=== PATIENT | male | born 1980 | race Caucasian/White ===

== ENCOUNTER 2018-03-17 01:36 | Emergency (ER) | payer OTHER ==
[~2018-03-17] VITALS: Ht 170.1 cm; Wt 77.1 kg
[~2018-03-17 01:36] MED LIST: HYDROCODONE BIT1 T11 PO; MOTRIN800 MG PO; NAPROSYN500 MG PO
[2018-03-17 02:21] LABS: BASO % 0.2 % (0.0-1.0); EOS # 0.1 10*3/uL (0.0-0.4); EOS % 1.1 % (1.0-4.0); HEMATOCRIT 36.6 % (42.0-52.0); HEMOGLOBIN 12.3 g/dl (14.0-18.0); LYMPH # 1.6 10*3/uL (1.3-4.4); LYMPH % 24.8 % (27.0-41.0); MEAN CELL VOLUME 105.2 fl (80.0-94.0); MEAN CORPUSCULAR HGB 35.3 pg (27.0-31.0); MEAN CORPUSCULAR HGB CONC 33.6 g/dl (33.0-37.0); MEAN PLATELET VOLUME 10.2 fl (9.6-12.3); MONO # 0.8 10*3/uL (0.1-1.0); MONO % 11.6 % (3.0-9.0); NEUT % 61.7 % (47.0-73.0); PLATELET COUNT AUTOMATED 98 10*3/uL (130-400); RED BLOOD COUNT 3.48 10*6/uL (4.50-5.90); WHITE BLOOD COUNT 6.5 10*3/uL (4.8-10.8)
[2018-03-17 02:37] LABS: ALBUMIN 2.4 gm/dl (3.1-4.5); ALKALINE PHOSPHATASE 168 U/L (45-117); BUN 5 mg/dl (7-24); CHLORIDE 104 mmol/L (98-107); POTASSIUM 3.1 mmol/L (3.5-5.1); SGOT/AST 222 IU/L (3-35); SGPT/ALT 83 U/L (12-78); SODIUM 141 mmol/L (136-145); TOTAL PROTEIN 6.9 gm/dL (6.4-8.2)
[2018-03-17] MEDS ORDERED: Motrin,Rufen800 MG PO (02:42)
[2018-03-17] MEDS ORDERED: ZITHROMAX250 MG PO (02:42)
[2018-03-17] MEDS ORDERED: K-TAB20 MEQ PO (02:49)
== END 2018-03-17 03:17 | disposition home or self-care (01) ==
LOC: ED 01:36
PROVIDERS: Emergency Medicine Emergency Medical Services
DX: J20.9 Acute bronchitis, unspecified (principal); E87.6 Hypokalemia; R74.8 Abnormal levels of other serum enzymes

== ENCOUNTER 2018-04-05 14:45 | Emergency (ER) | payer OTHER ==
[~2018-04-05] VITALS: Ht 167.6 cm; Wt 74.8 kg
[~2018-04-05 14:45] MED LIST changes: +K-TAB20 MEQ PO; +Motrin,Rufen800 MG PO; +ZITHROMAX250 MG PO
[2018-04-05] MEDS ORDERED: NORCO 5-325 TA1 EACH PO (16:25)
[2018-04-05] MEDS ORDERED: Motrin,Rufen800 MG PO (16:25)
== END 2018-04-05 16:33 | disposition home or self-care (01) ==
LOC: ED 14:45
DX: S82.891A Other fracture of right lower leg, initial encounter for closed fracture (principal); Z79.899 Other long term (current) drug therapy; W10.8XXA Fall (on) (from) other stairs and steps, initial encounter; Y93.89 Activity, other specified; Y92.89 Other specified places as the place of occurrence of the external cause; Y99.9 Unspecified external cause status

== ENCOUNTER 2018-04-24 21:56 | Emergency (ER) | payer OTHER ==
[~2018-04-24] VITALS: Ht 167.6 cm; Wt 72.6 kg
[~2018-04-24 21:56] MED LIST changes: +NORCO 5-325 TA1 EACH PO
== END 2018-04-24 23:30 | disposition home or self-care (01) ==
LOC: ED 21:56
DX: M25.571 Pain in right ankle and joints of right foot (principal)

== ENCOUNTER 2018-08-08 16:56 | Inpatient (IN) | payer OTHER ==
[~2018-08-08] VITALS: Ht 170.1 cm; Wt 73.3 kg
--- NOTE | ~2018-08-08 | WRIGHTHP ---
[place], [place] PATIENT HISTORY AND PHYSICAL EXAM NAME: DARRON ZUNIGA JR [facility] #: [id number] UNIT #: [id number] ROOM: 416 DOCTOR: VINICIO CHAMBERLAIN MD BIRTHDATE: [birth year] DOS: 08/08/2018 HISTORY OF PRESENT ILLNESS: 1. The patient is a 38-year-old gentleman with a past medical history of alcohol dependence. 2. Liver cirrhosis and ascites. 3. History of right ankle fracture. 4. Generalized anxiety disorder. The patient presented to the Emergency Department with jaundice and feeling unwell. The patient says that his eyes have been getting yellow for about 2 months now. The patient has history of significant alcohol dependence. No chest pain, no shortness of breath, no GI or urinary symptoms otherwise. The patient was found to be jaundiced and bilirubin elevated to 10.6 and AST of 185, lipase elevated to 678 and alkaline phosphatase at 187. Urine drug screen was positive for benzodiazepines. Albumin low at 1.9, alkaline phosphatase 156. Urine showing heavy gram-negative bacilli on urine cultures. Hemoglobin 12, platelets low at 72,000. PHYSICAL EXAMINATION: GENERAL APPEARANCE: The patient is alert and oriented x 3, in no visible distress. HEENT AND NECK: Extraocular movements are intact. The patient's sclerae are icteric and skin has yellowish tinge. Oral mucosa is moist and clean. No obvious facial weakness. Neck is supple without any lymphadenopathy. No thyromegaly. No JVD. No carotid arterial bruits. LUNGS: Clear to auscultation. No wheezing. No rhonchi. CARDIOVASCULAR SYSTEM: Heart rate is regular in rate and rhythm. S1 and S2 normally audible. No significant murmur or any other abnormal cardiac sounds. ABDOMEN: Soft, nontender. No obvious organomegaly. Bowel sounds are present. No obvious herniation. EXTREMITIES: Without significant cyanosis or edema. Warm to touch. CENTRAL NERVOUS SYSTEM: Alert and oriented x 3. Cranial nerves II-XII are intact. Speech is normal. The patient is able to move all extremities. Normal muscle strength. Deep tendon reflexes are equal on both sides. Plantars were downgoing. LABORATORY DATA: As mentioned above. IMPRESSION: 1. The patient with alcoholic liver cirrhosis, ascites and jaundice with elevated bilirubin level. Ultrasound of the liver shows liver cirrhosis without any biliary obstruction. There is some sludge and stones in the gallbladder. Dr. Rivas, the biomedical equipment specialist is following. No signs of any obstructive liver disease or obstructive jaundice. 2. Mild acute pancreatitis with normal looking pancreas on the CT scan of the abdomen, but slight elevation of lipase, which will be repeated tomorrow. 3. Alcohol heparin-induced thrombocytopenia. 4. Severe protein calorie malnutrition related to alcoholism and liver cirrhosis. [place], [place] PATIENT HISTORY AND PHYSICAL EXAM [facility]: [id number] #: [id number] ROOM: [facility] DOCTOR: VINICIO CHAMBERLAIN MD BIRTHDATE: [birth year] The patient is being observed for delirium tremens and is receiving Ativan on regular basis. No signs of delirium tremens so far. Ammonia level slightly elevated at 39. VINICIO CHAMBERLAIN MD CM:HISPHYS:PATIENT HISTORY AND PHYSICAL EXAMINATION 49 10 VINICIO CHAMBERLAIN MD 08/09/18 2012 interface
--- NOTE | ~2018-08-08 | DS ---
[place], [place] DISCHARGE SUMMARY NAME: DARRON ZUNIGA JR UNIT #: [id number] ROOM: 416 DOCTOR: VINICIO CHAMBERLAIN MD BIRTHDATE: [birth year] DOS: 08/11/2018 DISCHARGE DIAGNOSES: 1. Severe alcoholism. 2. Alcoholic liver cirrhosis, liver failure and ascites. 3. Poor prognosis. 4. Severe protein-calorie malnutrition related to alcoholism. 5. Mild acute pancreatitis related to alcohol intoxication. 6. Alcohol withdrawal. 7. Urinary tract infection with Escherichia coli resistant to penicillin. HOSPITAL COURSE: The patient was admitted to [facility] when he presented with generalized weakness and failure to thrive and alcohol intoxication. He was feeling sick. He said his eyes were getting yellow for about 2 months now. The patient was found to be severely icteric and his alcohol levels were elevated. The patient had been drinking alcohol excessively on daily basis. Bilirubin was elevated to 10.6. AST at 185, lipase at 678 and alkaline phosphatase at 187. Albumin was low at 1.9. The patient was admitted and started on treatment with Ativan to prevent delirium tremens from alcohol withdrawal and he did well. Liver cirrhosis, liver failure with elevated liver enzymes and bilirubin as well as protime elevated at 1.8. The patient was counseled on cessation of alcohol and the morbidity and mortality involved with consuming alcohol for him. Dr. Rivas, the vmware architect evaluated him and talked to the patient and recommended a followup. Thrombocytopenia secondary to alcohol abuse, platelet count of 72,000. Mild pancreatitis and elevation of lipase secondary to alcoholism and alcohol intoxication. Ascites related to liver cirrhosis. Lab data as mentioned above. Severe protein-calorie malnutrition secondary to alcoholism, albumin level of 1.9. DISCHARGE MANAGEMENT: Thiamin 100 mg a day, Ativan 1 mg every 8 hours. [facility] and follow up with a specialist, Dr. Rivas within a week. Ciprofloxacin 500 mg b.i.d. for a week. [place], [place] DISCHARGE SUMMARY NAME: DARRON ZUNIGA JR UNIT #: [id number] ROOM: 416 DOCTOR: VINICIO CHAMBERLAIN MD BIRTHDATE: [birth year] VINICIO CHAMBERLAIN MD CM:MARVIN [id number] VINICIO CHAMBERLAIN MD 08/29/18 1325 interface
--- NOTE | ~2018-08-08 | CON ---
[place], [place] REPORT OF CONSULTATION [id number] #: [id number] ROOM: 416 DOCTOR: PEARL YAÑEZ MD BIRTHDATE: [birth year] DOS: 08/10/2018 HISTORY OF PRESENT ILLNESS: This is a 38-year-old patient who presented with chief complaint of alcohol intoxication, jaundice, not feeling well, and the patient had to be admitted through Emergency Room for definitive liver assessment. The patient had a panel of blood work at the time of admission, H and H was 12 and 34, microcytic indices consistent with heavy alcoholism and white blood cell 7.6. His serum ammonia level was 39. Comprehensive metabolic panel, GFR greater than 60. Basic metabolic normal, bilirubin 10.6, AST and ALT of 185 and 53, consistent with alcoholic liver disease and lipase of 678, alkaline phosphatase of 187. Ethyl alcohol was 252 level. Drug screening, benzodiazepine positive. CT scan of the abdomen and pelvis, cholelithiasis and questionable mild contour of the liver nodularity consistent with cirrhosis. Pancreas is unremarkable on CT scan; however, lipase is elevated expectedly. His total bilirubin came down to 8 on hydration. Sonogram of gallbladder sludge, stones in the gallbladder, no biliary dilation was noticed. Lipase 536 on followup. His INR 1.8 with PT of 19.4. Urine cultures greater than 100,000 E. coli, acute hepatitis panel unremarkable for hepatitis A, B and C virus. PAST MEDICAL HISTORY: Heavy alcoholism. Also associated with pains and aches. PAST SURGICAL HISTORY: None. SOCIAL HISTORY: Heavy alcohol consumer and smoker as well. MEDICATIONS: List was reviewed. The patient has been on potassium supplementation, Zithromax and ibuprofen as an elective medication. FAMILY HISTORY: Noncontributory. REVIEW OF SYSTEMS: HEENT: Denies double vision, blurred vision. RESPIRATORY: Denies shortness of breath. CARDIOVASCULAR: Denies chest pain. DIGESTIVE SYSTEM: No hematemesis, no hematochezia. PHYSICAL EXAMINATION: HEENT: Head normocephalic, nontraumatic. Eyes, periorbital edema consistent with heavy alcohol consumption. Sclerae icteric. Mouth and buccal mucosa free of aphthous ulcer or thrush. NECK: Supple, no thyromegaly, no cervical lymphadenopathy. CHEST: Symmetric anatomy, equal expansion. No wheeze, no rhonchi. HEART: Normal sinus rhythm, no gallop, no murmur. ABDOMEN: Soft. No hepato-organomegaly. Bowel sounds present. Evidence of ascites. Mildly was noticed. No hepatic tip can be identified. EXTREMITIES: No cyanosis, no pedal edema. NEUROLOGIC: Alert and still cloudy with alcohol encephalopathy. IMPRESSION: The patient remains incomplete and I asked him that much alcohol is he consuming, initially tried to convince me about 2 ounces of alcohol daily. [place], [place] REPORT OF CONSULTATION NAME: DARRON ZUNIGA JR UNIT #: [id number] ROOM: 416 DOCTOR: PEARL YAÑEZ MD BIRTHDATE: [birth year] Subsequently, agrees to at least 5 cups of bourbon, each one of them about 8 ounce. That is a heavy dose of alcohol intoxication associated with this greater than 250 alcohol level. Cholelithiasis is not playing any role in his jaundice. His jaundice is mostly hepatocellular because of the alcohol. His thrombocytopenia as well the same. The patient needs counseling and follow up as outpatient. His bulk of the disease is cirrhosis secondary to alcoholism. The sequela of the cirrhosis including portal hypertension, most likely esophageal varicosity, ascites, thrombocytopenia, hyperammonemia and encephalopathy all as a consequence of the above and mild pancreatitis that is noticed with elevation of lipase is again secondary to pancreatitis. The patient is ordering food from outside, the supply of his own favorite food from outside and otherwise obviously, his deep jaundice is noticeable and edema of his face is consistent with heavy intoxication with alcohol chronically. Thank you very much indeed for your kind referral. Patient can be discharged and followed up as outpatient. Thank you very much again. PEARL YAÑEZ MD CM:CONSTR:REPORT OF CONSULTATION [id number] 08/24/18 0709 interface
--- NOTE | ~2018-08-08 | PR ---
[place], [place] PROGRESS NOTE NAME: DARRON ZUNIGA JR [facility] #: [id number] UNIT #: [id number] ROOM: 416 DOCTOR: VINICIO CHAMBERLAIN MD BIRTHDATE: [birth year] DOS: 08/10/2018 SUBJECTIVE: The patient continues to feel better. OBJECTIVE: VITAL SIGNS: Blood pressure 121/56, breathing normally, heart rate of 89 beats per minute, temperature of 99.4 degrees Fahrenheit. HEENT AND NECK: Exam within normal limits. CARDIOVASCULAR SYSTEM: Heart rate is regular in rate and rhythm. S1 and S2 normally audible. LUNGS: Clear to auscultation. ABDOMEN: Soft, nontender. No obvious organomegaly. Bowel sounds are present. EXTREMITIES: Without significant cyanosis or edema. IMPRESSION: The patient has [id number] liver failure with elevated INR at 1.8 and elevated protime to 1.8 with elevated liver enzymes and bilirubin. I will repeat a CMP in the morning and after getting clearance from Dr. Rivas, I may be able to discharge him to home tomorrow. PLAN: 1. The patient is being watched for alcohol withdrawal and delirium tremens and he remains on Ativan. The patient says he plans to stop drinking alcohol and he has already stopped smoking cigarettes. 2. Advanced liver cirrhosis and ascites now. 3. Severe protein-calorie malnutrition related to alcoholism. The patient working with dietary. 4. Mild acute pancreatitis, lipase is improving. VINICIO CHAMBERLAIN MD CM:PNTRANS [id number] VINICIO CHAMBERLAIN MD 08/10/18 1323 interface
[2018-08-08 16:59] VITALS: BP 124/78
[2018-08-08 17:29] LABS: BASO % 0.3 % (0.0-1.0); EOS # 0.1 10*3/uL (0.0-0.4); EOS % 1.1 % (1.0-4.0); HEMATOCRIT 34.5 % (42.0-52.0); HEMOGLOBIN 12.1 g/dl (14.0-18.0); LYMPH % 26.6 % (27.0-41.0); MEAN CELL VOLUME 106.2 fl (80.0-94.0); MEAN CORPUSCULAR HGB 37.2 pg (27.0-31.0); MEAN CORPUSCULAR HGB CONC 35.1 g/dl (33.0-37.0); MEAN PLATELET VOLUME 9.9 fl (9.6-12.3); MONO # 0.8 10*3/uL (0.1-1.0); MONO % 11.1 % (3.0-9.0); NEUT # 4.6 10*3/uL (2.3-7.9); NEUT % 60.8 % (47.0-73.0); PLATELET COUNT AUTOMATED 72 10*3/uL (130-400); RED BLOOD COUNT 3.25 10*6/uL (4.50-5.90); RED CELL DISTRI WIDTH 15.1 % (0-14.5); WHITE BLOOD COUNT 7.6 10*3/uL (4.8-10.8)
[2018-08-08 17:41] LABS: BILIRUBIN 2+ (NEGATIVE); BLOOD TRACE-INTACT (NEGATIVE); CLARITY SL CLOUDY (CLEAR); COLOR YELLOW (YELLOW); GLUCOSE NEGATIVE (NEGATIVE); KETONE NEGATIVE (NEGATIVE); LEUKO ESTERASE 1+ (NEGATIVE); NITRITE POSITIVE (NEGATIVE); PH 6.5 (5.0-9.0); SPECIFIC GRAVITY <= 1.005 (1.005-1.030)
[2018-08-08 17:47] LABS: ALBUMIN 2.2 gm/dl (3.1-4.5); ALKALINE PHOSPHATASE 187 U/L (45-117); BUN 4 mg/dl (7-24); CHLORIDE 106 mmol/L (98-107); CREATININE 0.88 mg/dL (0.70-1.30); LIPASE 678 U/L (73-393); POTASSIUM 3.7 mmol/L (3.5-5.1); SGOT/AST 185 IU/L (3-35); SGPT/ALT 53 U/L (12-78); SODIUM 140 mmol/L (136-145); TOTAL PROTEIN 7.9 gm/dL (6.4-8.2)
[2018-08-08 17:51] LABS: URINE AMPHETAMINES < 1000 (1000ng/ml); URINE BARBITURATES < 200 (200ng/ml); URINE BENZODIAZEPINES > 200 (200ng/ml); URINE CANNABINOIDS (THC) < 50 (50ng/ml); URINE COCAINE < 300 (300ng/ml); URINE METHADONE < 300 (300ng/ml); URINE OPIATES < 300 (300ng/ml); URINE PHENCYCLIDINE < 25 (25ng/ml)
[2018-08-08 17:56] LABS: RBC 0-2 rbc/hpf (0-2)
[2018-08-08 17:57] LABS: BACTERIA 4+; WBC 16-20 wbc/hpf (0-5)
[2018-08-08 19:56] VITALS: BP 124/70
[2018-08-08 20:28] VITALS: BP 136/84
[2018-08-09] VITALS: BP 135/81
[2018-08-09 06:31] LABS: ALBUMIN 1.9 gm/dl (3.1-4.5); ALKALINE PHOSPHATASE 156 U/L (45-117); BUN 5 mg/dl (7-24); CHLORIDE 109 mmol/L (98-107); CREATININE 0.76 mg/dL (0.70-1.30); POTASSIUM 3.7 mmol/L (3.5-5.1); SGOT/AST 145 IU/L (3-35); SGPT/ALT 42 U/L (12-78); SODIUM 143 mmol/L (136-145); TOTAL PROTEIN 6.6 gm/dL (6.4-8.2)
[2018-08-09 08:00] VITALS: BP 127/86
[2018-08-09 12:00] VITALS: BP 118/54
[2018-08-09 16:00] VITALS: BP 130/73
[2018-08-09 20:00] VITALS: BP 129/76
[2018-08-10] VITALS: BP 121/56
[2018-08-10 06:45] LABS: INTERNATIONAL NORM RATIO 1.8 (2.0-3.5)
[2018-08-10 08:01] VITALS: BP 124/74
[2018-08-10 08:11] LABS: HEPATITIS B SURFACE AG Negative (Negative); HEPATITIS C VIRUS ANTIBODY 0.2 s/co (0.0-0.9)
[2018-08-10 12:00] VITALS: BP 107/58
[2018-08-10 16:00] VITALS: BP 116/60
[2018-08-10 20:00] VITALS: BP 124/82
[2018-08-11] VITALS: BP 116/68
[2018-08-11 05:50] LABS: ALBUMIN 1.9 gm/dl (3.1-4.5); ALKALINE PHOSPHATASE 147 U/L (45-117); BUN 8 mg/dl (7-24); CHLORIDE 108 mmol/L (98-107); CREATININE 0.81 mg/dL (0.70-1.30); POTASSIUM 3.8 mmol/L (3.5-5.1); SGOT/AST 95 IU/L (3-35); SGPT/ALT 33 U/L (12-78); SODIUM 140 mmol/L (136-145); TOTAL PROTEIN 6.7 gm/dL (6.4-8.2)
[2018-08-11 08:00] VITALS: BP 112/58
[2018-08-11] MEDS ORDERED: CIPRO500 MG PO (09:03)
[2018-08-11] MEDS ORDERED: LORAZEPAM1 MG PO (09:03)
[2018-08-11] MEDS ORDERED: NATURE'S BLEND100 M2 PO (09:03)
[2018-09-05] MEDS ORDERED: LORAZEPAM2 MG/1 M1 PO (16:47)
== END 2018-08-11 10:42 | disposition home or self-care (01) | DRG 432 ==
LOC: ED 16:56 → 4E 19:56 → EDHOLD 19:56 → 4E 20:27
PROVIDERS: Internal Medicine; Nurse Practitioner Family
DX: K70.40 Alcoholic hepatic failure without coma (principal); K85.20 Alcohol induced acute pancreatitis without necrosis or infection; E43 Unspecified severe protein-calorie malnutrition; N39.0 Urinary tract infection, site not specified; F10.239 Alcohol dependence with withdrawal, unspecified; R62.7 Adult failure to thrive; B96.20 Unspecified Escherichia coli [E. coli] as the cause of diseases classified elsewhere; R31.9 Hematuria, unspecified; D69.6 Thrombocytopenia, unspecified; F41.1 Generalized anxiety disorder; K70.31 Alcoholic cirrhosis of liver with ascites; Y90.9 Presence of alcohol in blood, level not specified; F10.229 Alcohol dependence with intoxication, unspecified; Z88.8 Allergy status to other drugs, medicaments and biological substances; Z68.25 Body mass index [BMI] 25.0-25.9, adult

== ENCOUNTER 2018-10-08 23:04 | Emergency (ER) | payer OTHER ==
[~2018-10-08] VITALS: Ht 167.6 cm; Wt 85.3 kg
[~2018-10-08 23:04] MED LIST changes: +CIPRO500 MG PO; +LORAZEPAM1 MG PO; +LORAZEPAM2 MG/1 M1 PO; +NATURE'S BLEND100 M2 PO
[2018-10-08] MEDS ORDERED: LORAZEPAM1 MG PO (23:13)
[2018-10-08] MEDS ORDERED: THIAMINE HCL100 MG PO (23:13)
[2018-10-08] MEDS ORDERED: VITAMIN D22000 UNIT PO (23:14)
[2018-10-09 01:48] LABS: HEMATOCRIT 33.5 % (42.0-52.0); HEMOGLOBIN 11.4 g/dl (14.0-18.0); MEAN CELL VOLUME 108.1 fl (80.0-94.0); MEAN CORPUSCULAR HGB 36.8 pg (27.0-31.0); MEAN PLATELET VOLUME 9.9 fl (9.6-12.3); PLATELET COUNT AUTOMATED 76 10*3/uL (130-400); RED CELL DISTRI WIDTH 12.8 % (0-14.5); WHITE BLOOD COUNT 4.4 10*3/uL (4.8-10.8)
[2018-10-09 02:03] LABS: ALBUMIN 2.1 gm/dl (3.1-4.5); ALKALINE PHOSPHATASE 160 U/L (45-117); BUN 6 mg/dl (7-24); CHLORIDE 115 mmol/L (98-107); CREATININE 0.83 mg/dL (0.70-1.30); POTASSIUM 3.8 mmol/L (3.5-5.1); SGOT/AST 56 IU/L (3-35); SGPT/ALT 36 U/L (12-78); SODIUM 148 mmol/L (136-145); TOTAL PROTEIN 6.3 gm/dL (6.4-8.2)
[2018-10-09 02:09] LABS: BASOPHILS 1 % (0-1); PLATELET SUFFICIENCY LOW (NORMAL); TOTAL CELLS COUNTED 100 #CELLS
[2018-12-21] MEDS ORDERED: ASPIRIN325 M2 PO (00:08)
[2018-12-22] MEDS ORDERED: LORAZEPAM1 MG PO (20:23)
== END 2018-10-09 03:05 | disposition home or self-care (01) ==
LOC: ED 23:04
PROVIDERS: Emergency Medicine
DX: B34.9 Viral infection, unspecified (principal); Z88.0 Allergy status to penicillin; Z88.8 Allergy status to other drugs, medicaments and biological substances; Z79.899 Other long term (current) drug therapy; Z87.19 Personal history of other diseases of the digestive system

== ENCOUNTER → 2019-05-05 | Day surgery (SDC) | payer OTHER ==
[~2019-05-05] MED LIST changes: +ASPIRIN325 M2 PO; +PROPRANOLOL HCL10 MG PO; +THIAMINE HCL100 MG PO; +VITAMIN D22000 UNIT PO
== END | disposition home or self-care (01) ==
DX: R18.8 Other ascites (principal)

== ENCOUNTER 2019-05-09 21:11 | Emergency (ER) | payer OTHER ==
[~2019-05-09] VITALS: Ht 167.6 cm; Wt 82.6 kg
[2019-05-09 22:19] LABS: HEMATOCRIT 23.4 % (42.0-52.0); HEMOGLOBIN 7.8 g/dl (14.0-18.0); MEAN CELL VOLUME 119.4 fl (80.0-94.0); MEAN CORPUSCULAR HGB 39.8 pg (27.0-31.0); MEAN CORPUSCULAR HGB CONC 33.3 g/dl (33.0-37.0); MEAN PLATELET VOLUME 10.3 fl (9.6-12.3); PLATELET COUNT AUTOMATED 65 10*3/uL (130-400); RED BLOOD COUNT 1.96 10*6/uL (4.50-5.90); RED CELL DISTRI WIDTH 15.9 % (0-14.5); WHITE BLOOD COUNT 4.5 10*3/uL (4.8-10.8)
[2019-05-09 22:34] LABS: ALBUMIN 3.1 gm/dl (3.1-4.5); ALKALINE PHOSPHATASE 152 U/L (45-117); BUN 10 mg/dl (7-24); CHLORIDE 108 mmol/L (98-107); CREATININE 0.85 mg/dL (0.70-1.30); LIPASE 331 U/L (73-393); POTASSIUM 3.5 mmol/L (3.5-5.1); SGOT/AST 51 IU/L (3-35); SGPT/ALT 24 U/L (12-78); SODIUM 143 mmol/L (136-145); TOTAL PROTEIN 5.7 gm/dL (6.4-8.2)
[2019-05-09 22:44] LABS: ATYPICAL LYMPHS 1 % (0-0); PLATELET SUFFICIENCY LOW (NORMAL); TOTAL CELLS COUNTED 100 #CELLS
[2019-05-09 22:45] LABS: ACANTHOCYTES FEW; POLYCHROMASIA SLIGHT
== END 2019-05-10 00:44 | disposition home or self-care (01) ==
LOC: ED 21:11
PROVIDERS: Physician Assistant
DX: K70.31 Alcoholic cirrhosis of liver with ascites (principal); Z88.0 Allergy status to penicillin; Z88.8 Allergy status to other drugs, medicaments and biological substances; Z79.899 Other long term (current) drug therapy

== ENCOUNTER 2019-12-17 21:04 | Emergency (ER) | payer OTHER ==
[~2019-12-17] VITALS: Ht 167.6 cm; Wt 86.2 kg
== END 2019-12-18 00:21 | disposition left against medical advice (07) ==
LOC: ED 21:04
DX: R11.2 Nausea with vomiting, unspecified (principal); Z53.21 Procedure and treatment not carried out due to patient leaving prior to being seen by health care provider

== ENCOUNTER 2019-12-20 05:30 | Emergency (ER) | payer OTHER ==
[~2019-12-20] VITALS: Ht 177.8 cm; Wt 87.1 kg
[2019-12-20 06:06] LABS: BASO % 0.7 % (0.0-1.0); EOS # 0.1 10*3/uL (0.0-0.4); HEMATOCRIT 35.6 % (42.0-52.0); HEMOGLOBIN 12.3 g/dl (14.0-18.0); LYMPH # 1.1 10*3/uL (1.3-4.4); LYMPH % 35.5 % (27.0-41.0); MEAN CELL VOLUME 102.6 fl (80.0-94.0); MEAN CORPUSCULAR HGB 35.4 pg (27.0-31.0); MEAN CORPUSCULAR HGB CONC 34.6 g/dl (33.0-37.0); MEAN PLATELET VOLUME 9.9 fl (9.6-12.3); MONO # 0.4 10*3/uL (0.1-1.0); NEUT # 1.5 10*3/uL (2.3-7.9); NEUT % 49.8 % (47.0-73.0); PLATELET COUNT AUTOMATED 64 10*3/uL (130-400); RED BLOOD COUNT 3.47 10*6/uL (4.50-5.90); RED CELL DISTRI WIDTH 14.7 % (0-14.5)
[2019-12-20 06:20] LABS: ALKALINE PHOSPHATASE 132 U/L (45-117); BUN 8 mg/dl (7-24); CHLORIDE 111 mmol/L (98-107); CREATININE 1.13 mg/dL (0.70-1.30); LIPASE 109 U/L (73-393); POTASSIUM 3.9 mmol/L (3.5-5.1); SGOT/AST 57 IU/L (3-35); SGPT/ALT 52 U/L (12-78); SODIUM 145 mmol/L (136-145); TOTAL PROTEIN 5.1 gm/dL (6.4-8.2)
[2019-12-20 07:12] LABS: URINE AMPHETAMINES < 1000 (1000ng/ml); URINE CANNABINOIDS (THC) < 50 (50ng/ml); URINE METHADONE < 300 (300ng/ml); URINE OPIATES < 300 (300ng/ml)
[2019-12-20 07:13] LABS: BILIRUBIN NEGATIVE (NEGATIVE); BLOOD 3+ (NEGATIVE); CLARITY CLEAR (CLEAR); COLOR YELLOW (YELLOW); GLUCOSE NEGATIVE (NEGATIVE); KETONE NEGATIVE (NEGATIVE); LEUKO ESTERASE NEGATIVE (NEGATIVE); NITRITE NEGATIVE (NEGATIVE); RBC TNTC rbc/hpf (0-2); SPECIFIC GRAVITY 1.015 (1.005-1.030); UROBILINOGEN 0.2 E.U./dl (0.2-1.0)
[2019-12-20 07:14] LABS: BACTERIA TRACE
[2019-12-20 07:22] LABS: URINE BARBITURATES < 200 (200ng/ml); URINE BENZODIAZEPINES < 200 (200ng/ml); URINE COCAINE < 300 (300ng/ml)
[2019-12-20 07:23] LABS: URINE PHENCYCLIDINE < 25 (25ng/ml)
== END 2019-12-20 11:40 | disposition short-term general hospital (02) ==
LOC: ED 05:30
PROVIDERS: Emergency Medicine
DX: R41.82 Altered mental status, unspecified (principal); F41.9 Anxiety disorder, unspecified; R53.1 Weakness; Z88.0 Allergy status to penicillin; Z79.899 Other long term (current) drug therapy

== ENCOUNTER 2020-06-13 17:57 | Observation (INO) | payer OTHER ==
[~2020-06-13] VITALS: Ht 167.6 cm; Wt 95.5 kg
[2020-06-13 18:12] VITALS: BP 130/85
--- NOTE | 2020-06-13 18:35 | NUR ---
PT UNABLE TO PROVIDE URINE AT THIS TIME
[2020-06-13 19:02] LABS: HEMATOCRIT 23.5 % (42.0-52.0); MEAN CELL VOLUME 111.4 fl (80.0-94.0); MEAN CORPUSCULAR HGB 37.4 pg (27.0-31.0); MEAN CORPUSCULAR HGB CONC 33.6 g/dl (33.0-37.0); MEAN PLATELET VOLUME 9.5 fl (9.6-12.3); PLATELET COUNT AUTOMATED 59 10*3/uL (130-400); RED BLOOD COUNT 2.11 10*6/uL (4.50-5.90); RED CELL DISTRI WIDTH 17.7 % (0-14.5); WHITE BLOOD COUNT 6.4 10*3/uL (4.8-10.8)
[2020-06-13 19:13] LABS: ACT PARTIAL THROMBO TIME 52.5 SECONDS (20.0-32.1)
[2020-06-13 19:18] LABS: ALBUMIN 1.8 gm/dl (3.1-4.5); ALKALINE PHOSPHATASE 155 U/L (45-117); BUN 22 mg/dl (7-24); CHLORIDE 100 mmol/L (98-107); CREATININE 1.16 mg/dL (0.70-1.30); POTASSIUM 2.8 mmol/L (3.5-5.1); SGOT/AST 62 IU/L (3-35); SGPT/ALT 44 U/L (12-78); SODIUM 137 mmol/L (136-145); TOTAL PROTEIN 5.4 gm/dL (6.4-8.2)
[2020-06-13 19:23] LABS: TOTAL CELLS COUNTED 100 #CELLS
[2020-06-13 19:27] LABS: PLATELET SUFFICIENCY LOW (NORMAL)
[2020-06-13 19:38] LABS: BILIRUBIN 2+; BLOOD NEGATIVE (NEGATIVE); CLARITY CLOUDY (CLEAR); COLOR ORANGE (YELLOW); GLUCOSE NEGATIVE; KETONE NEGATIVE; LEUKO ESTERASE 1+ (NEGATIVE); NITRITE POSITIVE (NEGATIVE)
[2020-06-13 19:45] LABS: BACTERIA 2+
[2020-06-13 19:46] LABS: HYALINE CAST 21-30
--- NOTE | 2020-06-13 21:00 | NUR ---
PT RESTING IN BED WITH SIDERAILS UP X2. NO COMPLAINTS AT THIS TIME. CALL LIGHT WITHIN REACH
[2020-06-13 21:07] VITALS: BP 120/67
[2020-06-13] MEDS ORDERED: ATIVAN0.5 MG PO (21:20)
[2020-06-13] MEDS ORDERED: BUMETANIDE1 MG PO (21:20)
[2020-06-13] MEDS ORDERED: ROPINIROLE HYD0.5 MG PO (21:21)
[2020-06-13] MEDS ORDERED: TRAZODONE100 MG PO (21:22)
[2020-06-13 21:30] VITALS: BP 123/68
--- NOTE | 2020-06-13 21:30 | NUR ---
A 39, admitted to 5E, under the services of Dr. BULMARO WARREN,VINICIO Fuentes with a diagnosis of ASCITIES. Chief complaint is ABDOMINAL PAIN. Patient arrived via bed from ER. Monitor applied. Initial assessment completed. Vital signs taken and recorded. DR. BULMARO WARREN,VINICIO Fuentes notified of admission to the unit. Orders received. See assessment for past medical history, medications and allergies. Patient and/or family oriented to unit. [facility] visitation policy reviewed. Clothing/patient valuable form completed. ISAIAS FISHER
--- NOTE | 2020-06-13 21:56 | NUR ---
NOTIFIED DR. CHAMBERLAIN OF ADMISSION AND NEED FOR ORDERS. MED REC COMPLETE. DR CHAMBERLAIN STATES THAT PT IS FOR PARACENTESIS TOMORROW. WANTS DR. CULP NOTIFIED IN AM OF PT 21.5. DR. CHAMBERLAIN ALSO NOTIFIED THAT PT HGB IS 7.9 AND HCT 23.5. NO ORDERS FOR BLOOD AT THIS TIME. ORDERS RECEIVED FOR PT.
--- NOTE | 2020-06-13 23:41 | NUR ---
DR. CHAMBERLAIN NOTIFIED OF LACTIC 2.3
[2020-06-14] VITALS (19 sets, daily range): BP systolic 90–120; BP diastolic 46–71
--- NOTE | 2020-06-14 01:40 | NUR ---
PT SLEEPING COMFORTABLY AT THIS TIME.
--- NOTE | 2020-06-14 02:00 | NUR ---
DR. CHAMBERLAIN NOTIFIED OF LACTIC OF 2.1.
--- NOTE | 2020-06-14 04:00 | NUR ---
PT ASLEEP AT THIS TIME
--- NOTE | 2020-06-14 05:59 | NUR ---
IN TO SEE PT, PT AWAKENS EASILY, NO COMPLAINTS, CALL LIGHT IN REACH
[2020-06-14 06:59] LABS: BUN 22 mg/dl (7-24); CHLORIDE 102 mmol/L (98-107); CREATININE 0.98 mg/dL (0.70-1.30); POTASSIUM 3.3 mmol/L (3.5-5.1); SODIUM 139 mmol/L (136-145)
--- NOTE | 2020-06-14 08:30 | NUR ---
Quality Associate in to talk to patient. Patient states lives at home with his father. There are 4 steps in the home. Physician: Dr. Rodolfo Multani [facility]: [facility] Home health services: none Patient's level of ADLs: INDEPENDENT Patient has working utilities: yes DME: none Follow-up physician's appointment after d/c: he prefers to make his own follow up appt after discharge Does patient want to access PORTAL?: no Discharge plan discussed discharge planning. He lives at home with his father. He is independent in his ADLs and ambulation. Discussed home health care services and he declines. CM will continue to follow for any discharge planning needs. When medically stable he will be discharged to home. He states his father will provide transportation on discharge. KARIN KOVACS
--- NOTE | 2020-06-14 09:39 | NUR ---
PT REQUESTING ATIVAN FOR ANXIETY, GIVEN. WILL MONITOR FOR EFFECTIVENESS
[2020-06-14 11:07] LABS: HEMATOCRIT 23.7 % (42.0-52.0); INTERNATIONAL NORM RATIO 2.3 (2.0-3.5); MEAN CELL VOLUME 112.9 fl (80.0-94.0); MEAN CORPUSCULAR HGB 37.6 pg (27.0-31.0); MEAN CORPUSCULAR HGB CONC 33.3 g/dl (33.0-37.0); MEAN PLATELET VOLUME 9.5 fl (9.6-12.3); PLATELET COUNT AUTOMATED 55 10*3/uL (130-400); RED CELL DISTRI WIDTH 17.7 % (0-14.5)
[2020-06-14 11:33] LABS: BURR CELLS MODERATE; PLATELET SUFFICIENCY LOW (NORMAL); POLYCHROMASIA SLIGHT; ROULEAUX SLIGHT; SCHISTOCYTES FEW; TOTAL CELLS COUNTED 100 #CELLS
--- NOTE | 2020-06-14 11:51 | NUR ---
PT COMPLAIN OF GENERALIZED PAIN, NAUSEA. ZOFRAN AND TYLENOL GIVEN. WILL MONITOR FOR EFFECTIVENESS
--- NOTE | 2020-06-14 11:55 | NUR ---
TALKED TO ULTRASOUND, AWARE THAT INR IS 2.3, SPOKE TO DR. CHAMBERLAIN AND THAT FFP CAN BE ORDERED PRIOR TO PROCEDURE OR DURING PROCEDURE. DR. CHAMBERLAIN WANTS PARACENTESIS DONE TODAY. ULTRASOUND AWARE THAT DR. CULP CAN CALL DR. CHAMBERLAIN DIRECTLY TO TALK TO HIM ABOUT PATIENT. ULTRASOUND IS TO TALK TO DR. CULP AND ALL THIS RN BACK.
--- NOTE | 2020-06-14 12:26 | NUR ---
FFP ORDERED, ULTRASOUND WILL CALL THIS NURSE BACK TO NOTIFY WHEN FFP NEEDS STARTED ANDWHEN PROCEDURE IS PLANNED.
--- NOTE | 2020-06-14 14:16 | NUR ---
BLOOD PRODUCT IN PROCESS OF BEING PICKED UP, WILL RUN FFP AND WHEN COMPLETE WILL RUN SECOND UNIT OF FPP, 2ND UNIT OF FFT TO BE RUNNING WHILE PATIENT IN TRANSPORT TO ULTRASOUND FOR PARACENTESIS
--- NOTE | 2020-06-14 14:26 | NUR ---
FIRST UNIT FFP STARTED. PT UNDERSTANDS RISKS/BENEFITS. NO QUESTIONS AT THIS TIME. RN TO STAY WITH PATIENT PER PROTOCOL. PT UNDERSTANDS S/S TO NOTIFY TO RN
--- NOTE | 2020-06-14 15:08 | NUR ---
NOTIFIED ULTRASOUND THAT 2ND UNIT OF FFP IS BEING PICKED UP, PATIENT SHOULD BE READY FOR TRANSPORT TO ULTRASOUND FOR PARACENTESIS IN ABOUT [address] CULP WANTS FFP RUN WIDE OPEN AND TO BE RUNNING WHILE ON ROUTE TO PROCEDURE
--- NOTE | 2020-06-14 15:15 | NUR ---
FFP START, PER DR. CALDERA PLEASE HAVE FFP SECOND UNIT INFUSING IN ROUTE TO ULTRASOUND FOR PARACENTESIS.
--- NOTE | 2020-06-14 15:25 | NUR ---
TRANSPORTING PATIENT TO ULTRASOUND VIA CART. FFP INFUSING, RN ACCOMPANY PATIENT WITH TRANSPORT TO ULTRASOUND
--- NOTE | 2020-06-14 15:30 | NUR ---
PT IN ULTRASOUND, RN REMAIN WITH PATIENT UNTIL FFP COMPLETE. UNABLE TO DO VITAL SIGNS, NO VITAL MACHINE AVAILABLE. PT REMAIN STABLE, NO S/S OF REACTION NOTED.
--- NOTE | 2020-06-14 15:42 | NUR ---
2ND UNIT OF FFP COMPLETE. UNABLE TO COMPLETE VITALS DUE TO PATIENT BEING IN ULTRASOUND FOR PROCEDURE. WILL CHECK VITALS SOON PATIENT RETURN TO THE UNIT
--- NOTE | 2020-06-14 16:16 | NUR ---
RETURN FROM ULTRASOUND
--- NOTE | 2020-06-14 16:22 | NUR ---
PT RETURN FROM ULTRASOUND, BANDAID RIGHT LOWER QUAD, INTACT. NO DRAINAGE NOTED.
--- NOTE | 2020-06-14 21:31 | NUR ---
NOTIFIED DR. CHAMBERLAIN OF PATIENT BP, 90/46. NOTIFIED HIM PATIENT IS DROWSY. STATED TO HOLD HIS NIGHT TIME MEDICATIONS. NO OTHER ORDERS RECEIVED. WILL CONTINUE TO MONITOR.
[2020-06-15] VITALS (14 sets, daily range): BP systolic 88–111; BP diastolic 41–60
--- NOTE | 2020-06-15 02:03 | NUR ---
PATIENT SLEEPING, NO SIGNS OF DISTRESS. RESPIRATIONS EASY, NON LABORED. BED IN LOWEST POSITION, CALL LIGHT WITHIN REACH WILL CONTINUE TO MONITOR.
[2020-06-15 06:17] LABS: HEMATOCRIT 21.2 % (42.0-52.0); MEAN CELL VOLUME 113.4 fl (80.0-94.0); MEAN CORPUSCULAR HGB CONC 33.5 g/dl (33.0-37.0); MEAN PLATELET VOLUME 9.9 fl (9.6-12.3); PLATELET COUNT AUTOMATED 53 10*3/uL (130-400); RED BLOOD COUNT 1.87 10*6/uL (4.50-5.90); RED CELL DISTRI WIDTH 17.3 % (0-14.5); WHITE BLOOD COUNT 4.5 10*3/uL (4.8-10.8)
[2020-06-15 06:27] LABS: ALBUMIN 1.4 gm/dl (3.1-4.5); ALKALINE PHOSPHATASE 118 U/L (45-117); BUN 23 mg/dl (7-24); CHLORIDE 103 mmol/L (98-107); CREATININE 1.33 mg/dL (0.70-1.30); POTASSIUM 3.3 mmol/L (3.5-5.1); SGOT/AST 38 IU/L (3-35); SGPT/ALT 28 U/L (12-78); SODIUM 138 mmol/L (136-145); TOTAL PROTEIN 4.3 gm/dL (6.4-8.2)
[2020-06-15 07:31] LABS: ACANTHOCYTES FEW; BASOPHILS 2 % (0-1); PLATELET SUFFICIENCY LOW (NORMAL); POLYCHROMASIA SLIGHT; ROULEAUX SLIGHT; TOTAL CELLS COUNTED 100 #CELLS
[2020-06-15 07:32] LABS: SCHISTOCYTES FEW
[2020-06-15 09:13] LABS: FERRITIN 725.5 ng/mL (22.0-322.0)
--- NOTE | 2020-06-15 12:30 | NUR ---
ONE UNIT PRBCS STARTED AT THIS TIME.
--- NOTE | 2020-06-15 16:15 | NUR ---
LAB NOTIFIED OF INABILITY TO CHART STOP TIME ON TAR.
--- NOTE | 2020-06-15 16:20 | NUR ---
UNIT OF PRBCS COMPLETE AT THIS TIME.
--- NOTE | 2020-06-15 20:30 | NUR ---
IN TO ASSESS PATIENT. PATIENT SLEEPING. AROUSES EASILY. STATES THAT HE IS READY TO GET OUT OF HERE. HOPEFULLY TOMORROW. STATES HE'S SOMEWHAT SORE AFTER HIS PARACENTESIS THE OTHER DAY. STOMACH IS STILL DISTENDED. BUT PATIENT HAS NO OTHER COMPLAINTS. DENIES CP, DENIES SOB. PATIENT HYPOTENSIVE AND HAS BEEN, BUT DENIES ANY LIGHTHEADEDNESS OR DIZZYNESS.
--- NOTE | 2020-06-15 23:32 | NUR ---
24 HR chart check completed.
[2020-06-16] VITALS: BP 83/43; BP 88/44; BP 92/44
--- NOTE | 2020-06-16 | NUR ---
MANUALLY CHECKED PATIENTS BLOOD PRESSURE. PATIENT STATES HE'S ALWAYS LOW AND IT'S NOT ANYTHING TO WORRY ABOUT. MANUALLY PATIENTS BLOOD PRESSURE 92/44. PATIENT STATES THAT'S NOT TOO BAD. WILL CONITNUE TO MONITOR
--- NOTE | 2020-06-16 01:14 | NUR ---
PATIENT SLEEPING, NO DISTRESS NOTED. BREATHING IS EASY AND REGULAR ON ROOM AIR. CALL LIGHT WITHIN REACH, WILL MONITOR
--- NOTE | 2020-06-16 03:56 | NUR ---
PATIENT SLEEPING, BREATHING IS EASY AND REGULAR. NO DISTRESS NOTED. CALL LIGHT WITHIN REACH, WILL MONITOR
[2020-06-16 06:40] LABS: ALBUMIN 1.4 gm/dl (3.1-4.5); BUN 22 mg/dl (7-24); CHLORIDE 102 mmol/L (98-107); CREATININE 1.53 mg/dL (0.70-1.30); POTASSIUM 3.3 mmol/L (3.5-5.1); SGOT/AST 38 IU/L (3-35); SGPT/ALT 28 U/L (12-78); SODIUM 137 mmol/L (136-145)
[2020-06-16 06:42] LABS: TOTAL PROTEIN 4.6 gm/dL (6.4-8.2)
[2020-06-16 06:44] LABS: ALKALINE PHOSPHATASE 126 U/L (45-117)
[2020-06-16 08:00] VITALS: BP 96/62
[2020-06-16] MEDS ORDERED: ALDACTONE25 MG PO (09:12)
[2020-06-16] MEDS ORDERED: K-TAB10 MEQ PO (09:12)
[2020-06-16] MEDS ORDERED: CEFUROXIME AXE250 MG PO (09:12)
[2020-06-16] MEDS ORDERED: PROPRANOLOL HCL10 MG PO (09:12)
[2020-06-16 09:40] LABS: MEAN CORPUSCULAR HGB 36.9 pg (27.0-31.0); MEAN CORPUSCULAR HGB CONC 34.1 g/dl (33.0-37.0); MEAN PLATELET VOLUME 9.6 fl (9.6-12.3); PLATELET COUNT AUTOMATED 57 10*3/uL (130-400); RED BLOOD COUNT 2.68 10*6/uL (4.50-5.90); RED CELL DISTRI WIDTH 21.8 % (0-14.5); WHITE BLOOD COUNT 5.8 10*3/uL (4.8-10.8)
[2020-06-16 09:41] LABS: MEAN CELL VOLUME 108.2 fl (80.0-94.0)
[2020-06-16 10:34] LABS: BASOPHILS 3 % (0-1); TOTAL CELLS COUNTED 100 #CELLS
[2020-06-16 10:35] LABS: ACANTHOCYTES FEW; BURR CELLS FEW; PLATELET SUFFICIENCY LOW (NORMAL); POLYCHROMASIA SLIGHT; ROULEAUX SLIGHT; SCHISTOCYTES FEW
--- NOTE | 2020-06-16 11:31 | NUR ---
PT DISCHARGED HOME AT THIS TIME. HEPLOCK REMOVED. FOLLOW UP CARE AND PRESCRIPTIONS DISCUSSED.
== END 2020-06-16 11:31 | disposition home or self-care (01) ==
LOC: ED 17:57 → 5E 20:19 → EDHOLD 20:19 → 5E 20:45
PROVIDERS: Emergency Medicine; Internal Medicine; ADMIT Internal Medicine; ATTEND Internal Medicine
DX: K70.31 Alcoholic cirrhosis of liver with ascites (principal); E44.0 Moderate protein-calorie malnutrition; N39.0 Urinary tract infection, site not specified; D63.8 Anemia in other chronic diseases classified elsewhere